=== PATIENT | male | born 1995 | race Hispanic/Latino ===

== ENCOUNTER 2020-08-24 14:39 | Outpatient (CLI) | payer BC ==
--- NOTE | 2020-08-24 15:26 | RAD ---
Exam:3 views right foot HISTORY: Pain, involving the fifth metatarsal and fifth tarsal bone. COMPARISON: None FINDINGS: Joint spaces are preserved. Lisfranc alignment is maintained. No fracture. IMPRESSION: No radiographic abnormality.
== END 2020-08-24 14:40 | disposition home or self-care (01) ==
LOC: BICRAD 14:39
DX: M79.671 Pain in right foot (principal)